=== PATIENT | male | born 1950 | race Caucasian/White ===

== ENCOUNTER 2019-05-01 17:37 | Emergency (ER) | payer MEDICARE, OTHER ==
[2019-05-01 19:11] VITALS: BP 138/87
--- NOTE | 2019-05-01 20:00 | UC ---
Lower Extremity/Ankle HPI - HPI Summary HPI Summary: 69 yo with hx of hypertension, onset of left ankle pain and swelling 2 days ago , following a vacation with increased food and beer intake. History of gout 4 months ago which resolved with colchicine. Pain has minimally decreased since he started colchicine yesterday, and he has used aspirin to decrease pain. Did twist his ankle when body surfing last week. Believes he has normal renal function, and he has not hx of gastritis. - History of Current Complaint Chief Complaint: UCLowerExtremity Stated Complaint: R ANKLE PAIN Time Seen by Provider: 05/01/19 19:44 Hx Obtained From: Patient Onset/Duration: Sudden Onset, Lasting Days - 3 Severity Initially: Moderate Severity Currently: Mild Pain Intensity: 1 Aggravating Factor(s): Standing, Ambulation Alleviating Factor(s): Rest, Other - colchicine. - Risk Factors Gout Risk Factors: Age Over 40, Male, Hypertension, Obesity DVT Risk Factors: Recent Travel Septic Arthritis Risk Factor: Negative - Allergies/Home Medications Allergies/Adverse Reactions: Allergies Allergy/AdvReac Type Severity Reaction Status Date / Time avocado Allergy "Tingly Verified 05/01/19 19:05 tongue" cheese Allergy Congestion Verified 05/01/19 19:05 and "Red Face" shellfish derived Allergy "Tingly Verified 05/01/19 19:05 tongue" beer Allergy Congestion Uncoded 05/01/19 19:05 and "Red Face" Home Medications: Home Medications Aspirin EC TAB* [Ecotrin EC Low Dose 81 MG*] 81 mg PO DAILY 05/01/19 [History Confirmed 05/01/19] Atorvastatin* [Lipitor*] 40 mg PO DAILY 05/01/19 [History Confirmed 05/01/19] Colchicine* [Colcrys*] 0.6 mg PO SEE INSTRUCTIONS 05/01/19 [History Confirmed ] Lisinopril [Zestril 40 MG-] 40 mg PO DAILY 05/01/19 [History Confirmed 05/01/19] Vitamin THERAPEUTIC TAB* [Theragran TAB*] 1 tab PO DAILY 05/01/19 [History Confirmed 05/01/19] PMH/Surg Hx/FS Hx/Imm Hx - Additional Past Medical History Additional PMH: hx of gout, obesity. Cardiovascular History: Hypertension - Surgical History Surgical History: Yes Surgery Procedure, Year, and Place: Right [place], 1997, [place] - Family History Known Family History: Positive: Other - no FH of gout. 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 couple beers a day" Substance Use Type: None Smoking Status (MU): Former Smoker Type: Smokeless Tobacco Length of Time of Smoking/Using Tobacco: 08/16 PPD x 30 Years When Did the Patient Quit Smoking/Using Tobacco: 2015 Review of Systems All Other Systems Reviewed And Are Negative: Yes Constitutional: Positive: Fatigue Skin: Positive: Negative Eyes: Positive: Negative Cardiovascular: Positive: Other - treated htn Genitourinary: Positive: Other - hx of elevated PSA, around 6, minimal sx of BPH , followed by urology Motor: Positive: Decreased ROM Physical Exam Triage Information Reviewed: Yes Appearance: Well-Appearing, Pain Distress - moderate., Obese Vital Signs: Initial Vital Signs Temp 98.6 F 05/01/19 18:57 Pulse 84 05/01/19 18:57 Resp 18 05/01/19 18:57 BP 138/87 05/01/19 18:57 Pulse Ox 99 05/01/19 18:57 Respiratory: Positive: Lungs clear, Normal breath sounds Cardiovascular: Positive: RRR, No Murmur Musculoskeletal Exam: Other - right medial ankle with diffuse warmth, redness and swelling of the medial malleolus, TTP around the area. No lymphangitis. Full rom in ankle with minimal pain with passive movement Neurological Exam: Normal Lower Extremity Course/Dx - Course Course Of Treatment: Discussed lab work to check uric acid level etc, but he will follow up with Joseph Ngo in a few days for labs and evaluation. Continue colchicine daily. he declines trial of indomethacin and will continue aspirin for pain. - Differential Dx/Diagnosis Differential Diagnosis/HQI/PQRI: Bursitis, Cellulitis, Gout, Sprain, Strain, Tendonitis Provider Diagnosis: Gout attack Discharge ED - Sign-Out/Discharge Documenting (check all that apply): Patient Departure All imaging exams completed and their final reports reviewed: No Studies - Discharge Plan Condition: Stable Disposition: HOME Patient Education Materials: Gout (ED) Referrals: Gucci Ngo PA [Primary Care Provider] - Additional Instructions: Follow up with Joseph Ngo tomorrow or Sunday; as discussed, you will do lab work with him. Continue colchicine once daily, and increase use of aspirin to 650mg 3 times daily--stop if gi upset. FOLLOW UP IS IMPORTANT BECAUSE LAB WORK IS NEEDED TO CONFIRM GOUT AND DETERMINE IF IT WOULD BE PRUDENT TO TAKE A URIC ACID LOWERING MEDICATION - Billing Disposition and Condition Condition: STABLE Disposition: Home
== END 2019-05-01 20:30 | disposition home or self-care (01) ==
LOC: UCCORT 17:37
DX: M10.9 Gout, unspecified (principal); I10 Essential (primary) hypertension; Z87.891 Personal history of nicotine dependence
CPT/HCPCS: 99211; G0463